=== PATIENT | male | born 1985 | race Caucasian/White ===

== ENCOUNTER 2020-08-15 03:14 | Emergency (ER) | payer OTHER, SELFPAY ==
[2020-08-15] MEDS ORDERED: Iopamidol 370 76% 100 ML VIAL IV ONE (03:15)
[2020-08-15 03:34] LABS: #Basophils 0.1 thou/uL (0.0-0.2); #Eosinphils 0.1 thou/uL (0.0-0.7)
[2020-08-15 03:41] LABS: #Lymphocytes 1.6 thou/uL (1.20-3.40); #Monocytes 0.8 thou/uL (0.11-0.59); #Neutrophils 8.3 thou/uL (1.40-6.50); %Eosinophils 0.8 % (0.0-10.0); %Lymphocytes 14.5 % (21.0-51.0); %Monocytes 7.1 % (0.0-10.0); %Neutrophils 76.6 % (42.0-75.0); Mean Corpuscular HGB CONC 32.8 g/dL (32.0-36.0); Mean Corpuscular Hemoglobin 29.6 pg (27.0-31.0); Mean Corpuscular Volume 90.3 fL (78.0-98.0); Mean Platelet Volume 8.6 fL (7.4-10.4); Platelet Count 197 thou/uL (130-400); RBC Distribution Width 12.5 % (11.5-14.5); Red Blood Cell (RBC) Count 4.72 mill/uL (4.70-6.10); White Blood Cell (WBC) Count 10.9 thou/uL (4.8-10.8)
[2020-08-15 03:48] LABS: INR-International Normal Ratio 0.9; PTT 26.1 sec (22.9-36.1); Prothrombin Time 12.1 sec (12.0-14.7)
[2020-08-15 03:50] LABS: ALT (SGPT) 23 U/L (8-55); AST (SGOT) 25 U/L (5-34); Albumin 4.6 g/dL (3.5-5.0); Alcohol Less than 10 mg/dL (Less than 10); Alkaline Phosphatase 47 U/L (40-110); Anion Gap 12 mmol/L (10-20); BUN (Urea Nitrogen) 13 mg/dL (8.9-20.6); Bilirubin, Total 0.4 mg/dL (0.2-1.2); Calc. Creatinine Clearance 0 mL/min (70-130); Carbon Dioxide 28 mmol/L (22-29); Chloride 105 mmol/L (98-107); Globulin 2.6 g/dL (2.4-3.5); Glucose 106 mg/dL (70-105); Potassium 3.9 mmol/L (3.5-5.1); Protein, Total 7.2 g/dL (6.0-8.3); Sodium 141 mmol/L (136-145)
[2020-08-15] MEDS ORDERED: Bacitracin 1 PK ONE (04:46)
== END 2020-08-15 05:13 | disposition home or self-care (01) ==
LOC: MADERS 03:14
DX: S53.105A Unspecified dislocation of left ulnohumeral joint, initial encounter (principal); F17.210 Nicotine dependence, cigarettes, uncomplicated; V89.9XXA Person injured in unspecified vehicle accident, initial encounter
CPT/HCPCS: 70450; 70486; 71260; 72125; 74177; 80053; 80307; 85025; 85610; 85730; Q9967